=== PATIENT | female | born 1960 | race African-American/Black ===

== ENCOUNTER 2017-01-15 00:56 | Emergency (ER) | payer MEDICAID, MEDICARE, OTHER ==
[~2017-01-15] VITALS: Ht 160 cm; Wt 56.7 kg
[~2017-01-15 00:56] MED LIST: DIPH-722 PO; HYDR-3108 PO; METF500T2 PO; OLAN20TA1 PO
[2017-01-15 01:05] VITALS: BP 126/58
--- NOTE | 2017-01-15 01:13 | NUR ---
TO ER BED 6
--- NOTE | 2017-01-15 01:25 | NUR ---
CAME IN WITH C/O PAIN ON HER RT MOLAR TOOTH
[2017-01-15 01:38] VITALS: BP 126/58
== END 2017-01-15 01:38 | disposition home or self-care (01) ==
LOC: MED 00:56
DX: K08.89 Other specified disorders of teeth and supporting structures (principal); E11.9 Type 2 diabetes mellitus without complications; I10 Essential (primary) hypertension; Z88.0 Allergy status to penicillin; Z88.2 Allergy status to sulfonamides; Z91.040 Latex allergy status
CPT/HCPCS: 99281

== ENCOUNTER 2017-02-12 20:06 | Emergency (ER) | payer MEDICARE ==
[~2017-02-12] VITALS: Ht 160 cm; Wt 56.7 kg
[2017-02-12 20:31] VITALS: BP 99/50
--- NOTE | 2017-02-13 02:19 | NUR ---
PATIENT LEFT WITHOUT BEING SEEN BY DR. LO. NO FURTHER CARE PROVIDED FOR PATIENT.
== END 2017-02-13 02:19 | disposition left against medical advice (07) ==
LOC: MED 20:06
DX: Z76.0 Encounter for issue of repeat prescription (principal); Z53.21 Procedure and treatment not carried out due to patient leaving prior to being seen by health care provider; I10 Essential (primary) hypertension; E11.9 Type 2 diabetes mellitus without complications
CPT/HCPCS: 82948

== ENCOUNTER 2017-02-13 08:22 | Emergency (ER) | payer MEDICARE ==
[~2017-02-13] VITALS: Ht 157.5 cm; Wt 63.5 kg
--- NOTE | 2017-02-13 08:35 | NUR ---
PT REFUSED VITAL TO BE TAKEN---- IN TRIAGE SPEAKING WITH PT
--- NOTE | 2017-02-13 08:45 | NUR ---
Patient discharged with v/s stable. Written and verbal after care instructions given and explained. Patient alert, oriented and verbalized understanding of instructions. Ambulatory with steady gait. All questions addressed prior to discharge. ID band removed. Patient advised to follow up with PMD. Rx of HYDROCHLOROTHIAZIDE/METFORMIN/MOTRIN given. Patient educated on indication of medication including possible reaction and side effects. Opportunity to ask questions provided and answered.
== END 2017-02-13 08:45 | disposition home or self-care (01) ==
LOC: MED 08:22
DX: Z76.0 Encounter for issue of repeat prescription (principal); I10 Essential (primary) hypertension; E11.9 Type 2 diabetes mellitus without complications; F17.210 Nicotine dependence, cigarettes, uncomplicated; Z88.0 Allergy status to penicillin; Z88.2 Allergy status to sulfonamides; Z91.040 Latex allergy status
CPT/HCPCS: 99283

== ENCOUNTER 2017-03-03 01:25 | Emergency (ER) | payer MEDICARE ==
[~2017-03-03] VITALS: Ht 160 cm; Wt 49.4 kg
--- NOTE | 2017-03-03 01:30 | NUR ---
PATIENT LEFT WITHOUT BEING SEEN BY DR. CREWS. NO FURTHER CARE PROVIDED FOR PATIENT.
[2017-03-03 01:41] VITALS: BP 119/74
== END 2017-03-03 02:02 | disposition left against medical advice (07) ==
LOC: MED 01:25
DX: M25.511 Pain in right shoulder (principal); E11.9 Type 2 diabetes mellitus without complications; I10 Essential (primary) hypertension; Z88.0 Allergy status to penicillin; Z88.2 Allergy status to sulfonamides; Z91.040 Latex allergy status; Z79.899 Other long term (current) drug therapy; Z53.21 Procedure and treatment not carried out due to patient leaving prior to being seen by health care provider

== ENCOUNTER 2017-03-22 06:45 | Emergency (ER) | payer MEDICARE ==
[~2017-03-22] VITALS: Ht 160 cm; Wt 56.7 kg
[2017-03-22 06:50] VITALS: BP 136/72
--- NOTE | 2017-03-22 07:00 | NUR ---
Patient to OF.
--- NOTE | 2017-03-22 07:03 | NUR ---
Dr. Pérez evaluating patient.
--- NOTE | 2017-03-22 07:04 | NUR ---
56Y/F PT. PRESENTS TO ED WITH REQUESTING FOR MEDS REFILL. AAO X4, AMBULATORY WITH STEADY GAIT. RESPIRATIONS ROOM AIR, EVEN AND UNLABORED. NO S/SX OF DISTRESS AT THIS TIME. ER MD MADE AWARE OF PT. STATUS.
[2017-03-22 07:41] VITALS: BP 128/71
--- NOTE | 2017-03-22 07:41 | NUR ---
Patient discharged with v/s stable. Written and verbal after care instructions given and explained. Patient alert, oriented and verbalized understanding of instructions. Ambulatory with steady gait. All questions addressed prior to discharge. ID band removed. Patient advised to follow up with PMD. Rx of hydrochlorothiazide, metformin, ibuprofen given. Patient educated on indication of medication including possible reaction and side effects. Opportunity to ask questions provided and answered.
== END 2017-03-22 07:41 | disposition home or self-care (01) ==
LOC: MED 06:45
DX: Z76.0 Encounter for issue of repeat prescription (principal); E11.9 Type 2 diabetes mellitus without complications; I10 Essential (primary) hypertension; M19.90 Unspecified osteoarthritis, unspecified site; Z88.0 Allergy status to penicillin; Z91.040 Latex allergy status; Z88.2 Allergy status to sulfonamides
CPT/HCPCS: 99283

== ENCOUNTER 2017-04-09 18:18 | Emergency (ER) | payer SELFPAY ==
--- NOTE | 2017-04-09 18:30 | NUR ---
NO ANSWER IN ER LOBBY
--- NOTE | 2017-04-09 18:50 | NUR ---
NO ANSWER IN ER LOBBY
== END 2017-04-09 18:56 | disposition left against medical advice (07) ==
LOC: MED 18:18
DX: Z53.21 Procedure and treatment not carried out due to patient leaving prior to being seen by health care provider (principal)

== ENCOUNTER 2017-04-12 01:00 | Emergency (ER) | payer MEDICARE ==
[~2017-04-12] VITALS: Ht 160 cm; Wt 61.2 kg
[2017-04-12 01:20] VITALS: BP 125/65
--- NOTE | 2017-04-12 02:20 | NUR ---
Gene ruffin in [facility] - 04/12/17 at 0224 by MEDJAVAD TO ER BED 5
--- NOTE | 2017-04-12 02:23 | NUR ---
Gene ruffin in [facility] - 04/12/17 at 0224 by AIMEE Patient being evaluated by physician at bedside.
--- NOTE | 2017-04-12 02:29 | NUR ---
AMBULATED TO ER OF1
[2017-04-12 03:21] VITALS: BP 122/65
--- NOTE | 2017-04-12 03:22 | NUR ---
HOMELESS PATIENT WAIVER FORM GIVEN BY MARCELO GARCIA AND SIGNED BY MRS [id number] AT THIS TIME
--- NOTE | 2017-04-12 03:23 | NUR ---
Patient discharged with v/s stable. Written and verbal after care instructions given and explained. Patient alert, oriented and verbalized understanding of instructions. Ambulatory with steady gait. All questions addressed prior to discharge. ID band removed. Patient advised to follow up with PMD. Rx of MOTRIN 600MG TID,PERIDEX 0.12% 15ML BID given. Patient educated on indication of medication including possible reaction and side effects. Opportunity to ask questions provided and answered.
== END 2017-04-12 03:21 | disposition home or self-care (01) ==
LOC: MED 01:00
DX: M79.672 Pain in left foot (principal); K02.9 Dental caries, unspecified; E11.9 Type 2 diabetes mellitus without complications; I10 Essential (primary) hypertension; Z88.0 Allergy status to penicillin; Z91.040 Latex allergy status; Z88.2 Allergy status to sulfonamides
CPT/HCPCS: 99283

== ENCOUNTER 2017-05-16 23:35 | Emergency (ER) | payer MEDICARE ==
[~2017-05-16] VITALS: Ht 160 cm; Wt 61.2 kg
[2017-05-16 23:47] VITALS: BP 126/66
--- NOTE | 2017-05-16 23:56 | NUR ---
AMBULATED TO ER BED 6
[2017-05-17 00:02] VITALS: BP 126/66
--- NOTE | 2017-05-17 00:05 | NUR ---
PATIENT PRESENTS TO ED WITH NEED FOR MED REFILL FOR METFORMIN, HYDROCHORTHIAZIDE AND MOTRIN PT DENIES N/V/D; SKIN IS PINK/WARM/DRY; AAOX4 WITH EVEN AND STEADY GAIT; LUNGS CLEAR BL; HR EVEN AND REGULAR; PT DENIES ANY FEVER, CP, SOB, OR COUGH AT THIS TIME; PATIENT STATES PAIN OF 9/10 AT THIS TIME; VSS; PATIENT POSITIONED FOR COMFORT; HOB ELEVATED; BEDRAILS UP X2; BED DOWN. ER MD MADE AWARE OF PT STATUS.
--- NOTE | 2017-05-17 00:06 | NUR ---
Patient being evaluated by physician at bedside.
--- NOTE | 2017-05-17 00:23 | NUR ---
Patient discharged with v/s stable. Written and verbal after care instructions given and explained. Patient verbalized understanding. Ambulatory with steady gait. All questions addressed prior to discharge. Advised to follow up with PMD. PT REFUSED TO TAKE OFF ARMBAND AND WAS SWEARING AT STAFF SHE WAS BEING DISCHARGED.
--- NOTE | 2017-05-17 00:28 | NUR ---
HOMELESS PACKET GIVEN TO PATIENT.
== END 2017-05-17 00:24 | disposition home or self-care (01) ==
LOC: MED 23:35
DX: Z76.0 Encounter for issue of repeat prescription (principal); S09.90XA Unspecified injury of head, initial encounter; E11.9 Type 2 diabetes mellitus without complications; I10 Essential (primary) hypertension; Z88.0 Allergy status to penicillin; Z88.2 Allergy status to sulfonamides; Z91.040 Latex allergy status; W22.8XXA Striking against or struck by other objects, initial encounter; Y93.89 Activity, other specified; Y92.89 Other specified places as the place of occurrence of the external cause; Y99.8 Other external cause status
CPT/HCPCS: 99283

== ENCOUNTER 2017-05-27 23:48 | Emergency (ER) | payer MEDICARE ==
[~2017-05-27] VITALS: Ht 160 cm; Wt 61.2 kg
[2017-05-27 23:56] VITALS: BP 142/90
--- NOTE | 2017-05-28 00:40 | NUR ---
Patient being evaluated by physician at TRIAGE ROOM.
[2017-05-28 01:10] VITALS: BP 142/90
--- NOTE | 2017-05-28 01:10 | NUR ---
Patient discharged with v/s stable. Written and verbal after care instructions given and explained. Patient alert, oriented and verbalized understanding of instructions. Ambulatory with steady gait. All questions addressed prior to discharge. ID band removed. Patient advised to follow up with PMD. Rx of METFORMIN 500MG, MOTRIN 600MG, HYDROCHORTHIAZIDE 50 MG. given. Patient educated on indication of medication including possible reaction and side effects. Opportunity to ask questions provided and answered.
== END 2017-05-28 01:10 | disposition home or self-care (01) ==
LOC: MED 23:48
DX: Z76.0 Encounter for issue of repeat prescription (principal); E11.9 Type 2 diabetes mellitus without complications; I10 Essential (primary) hypertension; F20.9 Schizophrenia, unspecified; Z88.0 Allergy status to penicillin
CPT/HCPCS: 99283

== ENCOUNTER 2020-04-11 09:14 | Emergency (ER) | payer MEDICAID, MEDICARE ==
[~2020-04-11] VITALS: Ht 158.8 cm; Wt 71.2 kg
[2020-04-11 09:19] VITALS: BP 134/100
--- NOTE | 2020-04-11 09:26 | NUR ---
Patient ambulated to bed 11. RN evaluating the patient at bedside.
--- NOTE | 2020-04-11 09:30 | NUR ---
59/F PRESENTS FOR MED REFILL OF METFORMIN, ZYPREXA, TRAZADONE. HX- DM, PSYCH PROBLEMS, HTN
--- NOTE | 2020-04-11 09:31 | NUR ---
Dr. Dacosta is evaluating the patient at bedside.
[2020-04-11 09:43] VITALS: BP 135/90
--- NOTE | 2020-04-11 09:43 | NUR ---
Patient discharged with v/s stable. Written and verbal after care instructions given and explained. Patient alert, oriented and verbalized understanding of instructions. Ambulatory with steady gait. All questions addressed prior to discharge. ID band removed. Patient advised to follow up with PMD. Rx of TRAZODONE,ZYPREXA,METFORMIN given. Patient educated on indication of medication including possible reaction and side effects. Opportunity to ask questions provided and answered.
--- NOTE | 2020-04-11 09:43 | NUR ---
PT REFUSED TO TAKE OFF ARMBAND , CHARGE NURSE NOTIFIED AND AWARE
== END 2020-04-11 09:43 | disposition home or self-care (01) ==
LOC: MED 09:14
DX: E11.9 Type 2 diabetes mellitus without complications (principal); I10 Essential (primary) hypertension; F17.210 Nicotine dependence, cigarettes, uncomplicated; Z76.0 Encounter for issue of repeat prescription; Z91.040 Latex allergy status; Z88.0 Allergy status to penicillin; Z79.899 Other long term (current) drug therapy
CPT/HCPCS: 99281

== ENCOUNTER 2020-04-25 22:12 | Emergency (ER) | payer MEDICAID ==
[~2020-04-25] VITALS: Ht 157.5 cm; Wt 74.4 kg
[2020-04-25 22:18] VITALS: BP 138/97
--- NOTE | 2020-04-25 22:25 | NUR ---
PT AMBULATED TO ER BED 03
--- NOTE | 2020-04-25 22:40 | NUR ---
PT COMING IN TODAY WITH C/O HEADACHE AND TO GET REFILL ON MEDS, HCTZ AND ZYPREZA. PT STATES HEADACHE HAS BEEN PERSISTANT FOR 3 WEEKS BUT HAS GOTTEN WORSE TODAY. AMBULATES WITH STEADY GAIT, DENIES DIZZINESS, NO N/V/D. DENIES ANY VISION PROBLEMS.PUPILS EQUAL AND REACTIVE, HAND MACHINE FANCY STITCHER AND FOOT PULSE EQUAL AND STRONG. PT STATES SHE HASN'T HAD HER MEDS X 2 DAYS NOW. ALLERGIES - SULFA, PCN, LATEX HX - DM, HTN, BIPOLAR, SCHIZOAFFECTIVE
--- NOTE | 2020-04-25 23:11 | NUR ---
MD LEUNG AT [facility]
[2020-04-25 23:25] VITALS: BP 129/88
--- NOTE | 2020-04-25 23:27 | NUR ---
Patient discharged with v/s stable. Written and verbal after care instructions given and explained. Patient alert, oriented and verbalized understanding of instructions. Ambulatory with steady gait. All questions addressed prior to discharge. Patient advised to follow up with PMD. Rx of HCTZ AND ZYPREXA given. Patient educated on indication of medication including possible reaction and side effects. Opportunity to ask questions provided and answered. PT REFUSED TO LET ME REMOVE HER ID BAND, STATING SHE NEEDS IT FOR IDENTIFICATION DUE TO HER PURSE BEING STOLEN.
== END 2020-04-25 23:27 | disposition home or self-care (01) ==
LOC: MED 22:12
DX: I10 Essential (primary) hypertension (principal); R51 Headache; E11.9 Type 2 diabetes mellitus without complications; Z76.0 Encounter for issue of repeat prescription; Z88.2 Allergy status to sulfonamides; Z88.0 Allergy status to penicillin; Z91.040 Latex allergy status; Z79.899 Other long term (current) drug therapy; Z79.84 Long term (current) use of oral hypoglycemic drugs
CPT/HCPCS: 99281

== ENCOUNTER 2020-04-27 12:06 | Emergency (ER) | payer MEDICAID ==
[~2020-04-27] VITALS: Ht 160 cm; Wt 71.7 kg
[2020-04-27 12:10] VITALS: BP 110/57
--- NOTE | 2020-04-27 12:17 | NUR ---
PT AMB TO [facility]
--- NOTE | 2020-04-27 12:20 | NUR ---
BIB SELF FOR MED REFILL: ZEPREXA, HYDROCHLOROTIAZIDE. MED HX: DM, HTN, BIPOLA. DENIES HEADACHE AT THIS TIME.
--- NOTE | 2020-04-27 12:55 | NUR ---
Patient discharged with v/s stable. Written and verbal after care instructions given and explained. Patient alert, oriented and verbalized understanding of instructions. Ambulatory with steady gait. All questions addressed prior to discharge. ID band removed. Patient advised to follow up with PMD. Rx of ACETAMINOPHEN, HYDROCHLOROTIAZINE, OLANZAPINE & METFORMIN given. Patient educated on indication of medication including possible reaction and side effects. Opportunity to ask questions provided and answered.
[2020-04-27 12:57] VITALS: BP 110/57
== END 2020-04-27 12:55 | disposition home or self-care (01) ==
LOC: MED 12:06
DX: I10 Essential (primary) hypertension (principal); E11.9 Type 2 diabetes mellitus without complications; F31.9 Bipolar disorder, unspecified; F17.210 Nicotine dependence, cigarettes, uncomplicated; Z88.0 Allergy status to penicillin; Z91.040 Latex allergy status; Z98.890 Other specified postprocedural states; Z79.899 Other long term (current) drug therapy; Z79.84 Long term (current) use of oral hypoglycemic drugs
CPT/HCPCS: 99283